=== PATIENT | female | born 1950 | race Caucasian/White ===

== ENCOUNTER 2019-07-21 05:56 | Day surgery (SDC) | payer MEDICARE, SELFPAY ==
[2019-04-15 11:14] VITALS: BMI 28.9
--- NOTE | 2019-07-20 22:23 | HP.PCM_ITS ---
History and Physical Date of Admission: 07/21/19 HISTORY OF PRESENT ILLNESS 69 year old woman presents with a pigmented lesion on her left lower lip that has increased in size over the last several months. She states it has been there for a few years. She denies trauma to her lip. She denies fever. She denies any drainage. She does have a family history of skin cancer. She presents at this time for further evaluation and treatment. PAST MEDICAL HISTORY Arthritis (Acute) Carpal tunnel syndrome (Acute) GERD (gastroesophageal reflux disease) (Acute) High cholesterol (Acute) Hives (Acute) IBS (irritable bowel syndrome) (Acute) Seasonal allergies (Acute) High blood pressure (Chronic) PAST SURGICAL HISTORY arthroscopic knee surgery cholecystectomy hysterectomy VARICOSE VEIN SURGERY ALLERGIES ENVIRONMENTAL MEDICATIONS amlodipine cetirizine losartan-hydrochlorothiazide omega-3 fatty acids omeprazole simvastatin FAMILY HISTORY Father - Angina at rest, Hypertension, Lung cancer, Respiratory disease Mother - Arthritis, Ovarian cancer, History of blood clots, History of blood transfusion, Bowel disease, Cervical cancer, Uterine cancer, Heart disease, Hypertension, High cholesterol Sister - Breast cancer, Uterine cancer, Cervical cancer, Ovarian cancer Other - Family history of skin cancer SOCIAL HISTORY Smoking Status: Former smoker alcohol intake: never substance use type: does not use REVIEW OF SYSTEMS General - Denies fever, fatigue, and weight loss. Eyes - Denies cataracts and glaucoma. ENT - Denies nasal congestion and sore throat. Endocrine - Denies excessive thirst and urination. Skin - Denies skin cancer. Has enlarging pigmented lesion left lower lip. Has family history of skin cancer. Musculoskeletal - Has joint pain. Denies joint stiffness, weakness of muscles and joints, back pain, and arthritis. Neuro - Denies headaches. Cardiovascular - Denies chest pain, fatigue, and shortness of breath with exertion. Psych - Denies anxiety and depression. Respiratory - Denies chronic cough and shortness of breath. Patient is a former smoker. Gastrointestinal - Denies nausea, vomiting, diarrhea, and constipation. Hematologic - Denies abnormal bruising and bleeding. Genitourinary - Denies hematuria and urinary frequency. PHYSICAL EXAMINATION General - Alert and Oriented. HEENT - PERRL. EOMI. Throat is clear. On the left lower lip in the bridgette is a 6 mm pigmented lesion. Lesion is flat. Has irregular borders. No ulceration. Lesion is nontender. It is located 1.5 cm from the oral commissure. The length of the lower lip is 6 cm. Neck - Supple and nontender. No cervical adenopathy. No suspicious lesions noted. Lungs - Clear to auscultation. Heart - Regular rate and rhythm. Abdomen - Soft and nondistended. Extremities - FROM. No axillary adenopathy. Radial pulses are palpable. No suspicious lesions noted. Neuro - CN II-XII grossly intact. Psych - Normal mood and affect. ASSESSMENT 1. 6 mm pigmented lesion left lower lip. 2. Family history of skin cancer. 3. Former smoker. PLAN Recommend excision of this pigmented lesion left lower lip and send it to Pathology for analysis to rule out carcinoma. If carcinoma is present, then further excision will be done with complex lip flap reconstruction. The wound would be left open initially until the final pathology is available showing negative margins. Depending on the defect, I may temporarily close the defect with acellular dermal matrix graft. If the frozen section is negative, will close the defect primarily with a transverse closure. If there is distortion, I may need to advance local lip flaps for reconstruction or advance a mucosal flap. Surgery will be done on an outpatient basis under local anesthesia and IV sedation. Patient was informed of the risks and complications of the procedure including alternatives to surgery. These were discussed with the patient personally. Patient voices understanding and wishes to proceed. Some of the risks and complications were included in a form from the [employer]. Due to the Coronavirus pandemic, other risks and complications include but are not inclusive of bimal the Coronavirus despite taking all standard necessary precautions. She voices understanding and wishes to proceed.
[2019-07-21] VITALS (7 sets, daily range): BP systolic 87–130; BP diastolic 54–68; PULSE 71–81; RESP 16–169; TEMP 36.1–36.2; O2SAT 98–100; BMI 27.5
--- NOTE | 2019-07-21 | LES_PTH ---
PATIENT: AGNES RUTHERFORD [place] [facility] [id number] AGE/SX: 69/F ROOM: RE07/21/[address]: Dr. Vincenzo Carter MD : 1950 BED: DIS: 07/21/2019 SPEC #: [id number] RECD: 07/21/19 08:02 STATUS: DAO ASHLYN #: [id number] NITO: 07/21/19 00:[address]: Vincenzo Carter DEPT: SURGICAL PATHOLOGY RECD BY: Heather Anaya ENTERED: 07/21/19 08:56 SP TYPE: Lesion OTHR DR: Dr. Rosa Maria Colin MD Tissues: Skin of lip, NOS Procedures: Frozen Section (charge) Surgery Specimen Level IV HEADER OPERATION: Excision pigmented lesion left lower lip PRE-OP DIAGNOSIS: 6 mm pigmented lesion left lower lip TISSUE SUBMITTED: Pigmented lesion left lower lip, frozen section FROZEN SECTION DIAGNOSIS Left lower lip lesion, biopsy: Negative for malignancy. Suggestive of hemangioma. 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 DASHA:gypsy 07/22/19 COMMENT Case has been reviewed in consultation with Dr. Welch who concurs with the above diagnosis. IDC:AM MICROSCOPIC DESCRIPTION Slides are reviewed. GROSS DESCRIPTION Received fresh for frozen section diagnosis labeled with the patient's name is a specimen designated left lower lip. The specimen consists of a piece of farmer mucosal tissue measuring 0.6 x 0.3 x 0.1 cm. The specimen is inked and submitted entirely for frozen section diagnosis in one cassette. / DASHA:gypsy 07/21/19 TC:1 CPT: 25548, 19874
[2019-07-21] MEDS: Lactated Ringers 1,000 ML 100 ML IV (06:51)
[2019-07-21 06:55] LABS: Bedside Glucose 116 mg/dL (70-110)
[2019-07-21] MEDS: Mupirocin Ointment 22gm Tube 1 APPLIC (09:09)
--- NOTE | 2019-07-21 09:30 | PCM.OPRPT ---
Report of Operation Date of Procedure: 07/21/19 Pre-Operative Diagnosis: 1. 6 mm pigmented lesion left lower lip. 2. Family history of skin cancer. 3. Former smoker. Post-Operative Diagnosis: 1. 6 mm hemangioma left lower lip. 2. Family history of skin cancer. 3. Former smoker. Surgery/Procedure Performed:: Excision 6 mm hemangioma left lower lip with medial and lateral horizontal advancement lip flaps reconstruction (6.75 cm2). Description of Surgical Findings:: 69 year old woman presents with a pigmented lesion on her left lower lip that has increased in size over the last several months. She states it has been there for a few years. She denies trauma to her lip. She denies fever. She denies any drainage. She does have a family history of skin cancer. Patient was informed of the risks and complications of the procedure including alternatives to surgery. These were discussed with the patient personally. Patient voices understanding and wishes to proceed. Some of the risks and complications were included in a form from the [employer]. We discussed the current risks associated with COVID-19. While it is understood that there is a community spread of COVID-19, the risk of bimal COVID-19 while at [facility] ([facility]) is very low; however, the risk cannot be completely mitigated because of the community spread of the disease. We discussed in detail the risk of exposure to and/or potential harm posed by the COVID-19 virus with having a surgery/procedure at this time versus the risk of delaying the surgery/procedure. It is not possible to know either the risk of delaying the surgery or procedure or chance of getting an infection with perfect accuracy, but a joint decision was made to proceed at this time with the scheduled surgery/procedure as indicated on the consent form. Patient was notified that we will need to comply with any screening or testing [facility] wishes to perform or that surgery may be delayed for any positive results. Frozen section left lower lip - hemangioma and no cancer seen. electric meter installer: None Type of Anesthesia:: Local MAC - xylocaine with epinephrine and IV sedation. Specimen's removed: Pigmented lesion left lower lip to Pathology as a frozen section. Drains: None. Estimated Blood Loss (mL): 20 ml. Description of Procedure: Patient was taken to OR in supine position and was given IV sedation. The lips and face were prepped and draped in the usual fashion. SCD's were placed for DVT prophylaxis. Perioperative antibiotics were given intravenously. The lesion left lower lip was infiltrated with xylocaine and epinephrine with an intraoral mental nerve block. After waiting 5 minutes for the anesthetic to take effect, I excised the pigmented lesion as a full thickness excision. It was sent to Pathology as a frozen section for analysis to rule out carcinoma. The frozen section showed it was a hemangioma and no carcinoma was seen. Therefore will close the lip defect with horizontal advancement lip flaps. The horizontal flaps were designed at the bridgette border and at the junction of the dry mucosa and wet mucosa. Dissection was carried down to the underlying orbicularis muscle. The medial flap dimensions were 1.5 x 2 cm. The lateral flap dimensions were 1.5 x 1.5 cm. Hemostasis was obtained with electrocautery. The horizontal lip flaps were advanced into the defect with minimal tension and minimal distortion. The lip and intraoral mucosal was approximated with 4-0 Chromic simple interrupted sutures. The bridgette border and lip tissue were approximated with 5-0 Monocryl interrupted sutures for deep dermis and subcutaneous tissue. The bridgette border was approximated to the skin of the lip with 6-0 Prolene simple interrupted sutures. Good lip contour was seen. The size of the defect and the size of the flaps needed to close the defect was 6.75 cm2. Antibiotic ointment was applied to the suture lines. No vascular compromise was noted on the lip flaps. Patient tolerated the procedure well and was sent to PACU in satisfactory condition. Patient will be sent home on antibiotics and pain medication. She will keep her head elevated during the initial postoperative period. Patient will followup in a week for a wound check and for discussion of the pathology report and for removal of the sutures. Grafts/Implants Used: None. - Complications None. - Admit VTE Documentation VTE Present on Admission: No VTE Mechan Device Prophylaxis: SCD's VTE Pharm Prophylaxis ordered?: No Surgery Charges CPT - 87936 ICD-10 - D18.01, D49.0, Z80.8, Z87.891 75494 D18.01, D49.0, Z80.8, Z87.891
--- NOTE | 2019-07-21 09:36 | PCM.DC ---
You will use the following diet at home:: No restrictions Discharge Activity: May not drive while taking narcotic pain medications., May Shower - in two days, - - keep head elevated. no heavy lifting. chew on right side of mouth. May shower in (days): 2 May resume sexual activity in: No Restrictions Ice area for (Minutes): 5 - as needed for facial swelling Weight Bearing Status: Weight bearing as tolerated Lifting Restrictions: 10 lbs. Keep extremity elevated above heart level: - - elevate head. Call your doctor if your incision/area has: Continuous Slow Oozing, Sudden Increased Bleeding, Increased Pain/ Swelling, Increased Redness, Foul Smelling Discharge, Swelling at the incision site Call your doctor if you observe: Fever of 101 or Higher, Coldness, Increased Pain, Shortness of breath, Chest pain, Calf discomfort, Uncontrolled pain Suture Line Care: - - apply antibiotic ointment to suture line daily. Cleanse incision/area with: - - may get incisions wet in the shower in two days. Allergies/Adverse Reactions: Allergies ENVIRONMENTAL Allergy (Mild, Uncoded 07/16/19 09:23) Itching DUST, POLLEN Medications to take at Discharge amlodipine 10 mg tablet 10 mg PO DAILY 03/26/19 cetirizine 10 mg tablet 10 mg PO DAILY PRN tab 03/26/19 losartan 100 mg-hydrochlorothiazide 12.5 mg tablet 1 tab PO DAILY 03/26/19 omega-3 fatty acids 1,000 mg capsule 2,000 mg PO DAILY cap 03/26/19 omeprazole 20 mg capsule,delayed release 20 mg PO DAILY 03/26/19 simvastatin 20 mg tablet 20 mg PO DAILY 03/26/19 Metformin HCl [Glucophage] 500 mg PO DAILY 07/16/19 Clindamycin HCl [Cleocin] 300 mg PO TID #12 cap 07/21/19 Lactobacillus Acidophilus/Fos [Acidophilus Probiotic Tablet] 1 ea PO BID #10 tab 07/21/19 Oxycodone HCl/Acetaminophen [Percocet 5/325] 1 tab PO Q6H PRN PRN 7 Days #28 tab 07/21/19 The following prescriptions were given: Lactobacillus Acidophilus/Fos [Acidophilus Probiotic Tablet] 1 ea PO BID #10 tab Transmission Status: Sent to [facility] Clindamycin HCl [Cleocin] 300 mg PO TID #12 cap Transmission Status: Sent to [facility] Oxycodone HCl/Acetaminophen [Percocet 5/325] 1 tab PO Q6H PRN PRN 7 Days #28 tab PRN Reason: Pain Score 4-5/10 Transmission Status: Sent to [facility] Primary Care Physician: Rosa Maria Colin MD [Primary Care Provider] - Test Results: Test results from this visit will be discussed in further detail at your follow-up appointment, if applicable. Please Follow Up With: Vincenzo Caretr MD When: one week. call [phone] for appt.
== END 2019-07-21 10:26 | disposition home or self-care (01) ==
LOC: SDC 05:57 → AC 05:58
PROVIDERS: PCP Family Medicine; Referring Provider Surgery; Visit Provider Surgery
PROC: (CPT 40525; principal; 2019-07-21 07:20)
DX: D18.01 Hemangioma of skin and subcutaneous tissue (principal); I10 Essential (primary) hypertension; E11.9 Type 2 diabetes mellitus without complications; E78.00 Pure hypercholesterolemia, unspecified; K21.9 Gastro-esophageal reflux disease without esophagitis; J30.2 Other seasonal allergic rhinitis; M19.90 Unspecified osteoarthritis, unspecified site; Z79.84 Long term (current) use of oral hypoglycemic drugs; Z79.899 Other long term (current) drug therapy; Z87.891 Personal history of nicotine dependence; Z80.8 Family history of malignant neoplasm of other organs or systems
CPT/HCPCS: 00300; 40525; 82962; 88305; 88331; J7120